=== PATIENT | male | born 1960 | race Caucasian/White ===

== ENCOUNTER 2018-06-25 03:13 | Inpatient (IN) | payer OTHER ==
[2018-06-25] MEDS: SOD CHLORIDE 0.9% 1,000 ML IV ×2 (04:34→16:30)
[2018-06-25 05:37] LABS: ADD MAN DIFF? NO
[2018-06-25 05:44] LABS: ABNORMAL IP MESSAGE 1; BASOPHILS % 0.5 % (0.0-2.0); EOSINOPHILS # 0.1 10^3/ul (0.0-0.5); EOSINOPHILS % 2.3 % (0.0-7.0); HEMATOCRIT 26.4 % (42.0-52.0); HEMOGLOBIN 9.1 g/dl (14.0-18.0); LYMPHOCYTES # 0.8 10^3/ul (0.8-2.9); LYMPHOCYTES % 13.9 % (15.0-51.0); MEAN CORPUSCULAR HEMOGLOBIN 33.5 pg (29.0-33.0); MEAN CORPUSCULAR HGB CONC 34.5 g/dl (32.0-37.0); MEAN CORPUSCULAR VOLUME 97.1 fl (82.0-101.0); MEAN PLATELET VOLUME 11.2 fl (7.4-10.4); MONOCYTE # 0.8 10^3/ul (0.3-0.9); NEUTROPHILS % 68.8 % (39.0-77.0); PLATELET COUNT 92 10^3/UL (140-415); POSITIVE DIFF @See below; RED BLOOD COUNT 2.72 10^6/ul (4.70-6.10); RED CELL DISTRIBUTION WIDTH 16.3 % (11.5-14.5)
[2018-06-25 05:44] LABS: WHITE BLOOD COUNT 5.8 10^3/ul (4.8-10.8)
[2018-06-25 06:12] LABS: ALANINE AMINOTRANSFERASE 47 IU/L (13-69); ALBUMIN 2.5 g/dl (3.3-4.9); ALBUMIN/GLOBULIN RATIO 0.67; ALKALINE PHOSPHATASE 120 IU/L (42-121); ANION GAP 7 (5-13); ASPARTATE AMINO TRANSFERASE 134 IU/L (15-46); BILIRUBIN,INDIRECT 1.1 mg/dl (0-1.1); BLOOD UREA NITROGEN 8 mg/dl (7-20); CALCIUM 7.5 mg/dl (8.4-10.2); CARBON DIOXIDE 27 mmol/L (21-31); CHLORIDE 99 mmol/L (97-110); CREATININE 0.49 mg/dl (0.61-1.24); Estimated GFR > 60 mL/min (>60); GLUCOSE 93 mg/dl (70-220); POTASSIUM 4.3 mmol/L (3.5-5.1); SODIUM 133 mmol/L (135-144); TOTAL PROTEIN 6.2 g/dl (6.1-8.1)
[2018-06-25] MEDS ORDERED: SOD CHLORIDE 0.9% 1,000 ML IV (07:24)
[2018-06-25] MEDS ORDERED: NACL 0.9% 3 ML SYG IV (07:30)
[2018-06-25] MEDS ORDERED: ACETAMINOPHEN 325 MG TAB PO (07:30)
[2018-06-25] MEDS ORDERED: VANCOMYCIN IV PER PHARMACY XX (07:30)
[2018-06-25] MEDS ORDERED: HEPARIN 5,000 UNIT/0.5 ML VIAL ×2 (09:52→20:00)
[2018-06-25] MEDS: METHADONE 10 MG TAB PO (09:58)
[2018-06-25] MEDS: HYDROCODONE/APAP (5/325) TAB PO ×3 (09:59→20:33)
[2018-06-25] MEDS: CEFEPIME 1GM/50 ML (PMX) 50 ML IVPB ×2 (09:59→20:17)
[2018-06-25] MEDS: HEPARIN 5,000 UNIT/1 ML VIAL SC ×2 (10:03→20:41)
[2018-06-25] MEDS: VANCOMYCIN 1.25 GM in SOD CHLORIDE 0.9% 250 ML IVPB ×2 (10:52→22:33)
[2018-06-25] MEDS: LACTOBACILLUS RHAMNOSUS CAP PO (20:17)
[2018-06-26] MEDS: SOD CHLORIDE 0.9% 1,000 ML IV ×3 (00:30→21:02)
[2018-06-26] MEDS: HYDROCODONE/APAP (5/325) TAB PO ×4 (02:57→23:19)
[2018-06-26 05:54] LABS: ADD MAN DIFF? NO; HAAIG REFLEX REFLEX FILED
[2018-06-26 05:59] LABS: BASOPHILS % 0.8 % (0.0-2.0); EOSINOPHILS # 0.2 10^3/ul (0.0-0.5); EOSINOPHILS % 3.4 % (0.0-7.0); HEMOGLOBIN 10.1 g/dl (14.0-18.0); LYMPHOCYTES % 21.5 % (15.0-51.0); MEAN CORPUSCULAR HEMOGLOBIN 32.9 pg (29.0-33.0); MEAN CORPUSCULAR HGB CONC 33.7 g/dl (32.0-37.0); MEAN CORPUSCULAR VOLUME 97.7 fl (82.0-101.0); MEAN PLATELET VOLUME 10.4 fl (7.4-10.4); MONOCYTE # 0.5 10^3/ul (0.3-0.9); MONOCYTES % 10.8 % (0.0-11.0); NEUTROPHILS % 63.3 % (39.0-77.0); PLATELET COUNT 108 10^3/UL (140-415); POSITIVE DIFF @See below; RED BLOOD COUNT 3.07 10^6/ul (4.70-6.10); RED CELL DISTRIBUTION WIDTH 16.7 % (11.5-14.5)
[2018-06-26 05:59] LABS: WHITE BLOOD COUNT 4.7 10^3/ul (4.8-10.8)
[2018-06-26 06:34] LABS: INR 1.46; PT RATIO 1.4
[2018-06-26 06:49] LABS: ALANINE AMINOTRANSFERASE 44 IU/L (13-69); ALBUMIN 2.3 g/dl (3.3-4.9); ALKALINE PHOSPHATASE 133 IU/L (42-121); ASPARTATE AMINO TRANSFERASE 134 IU/L (15-46); BILIRUBIN,INDIRECT 1.5 mg/dl (0-1.1); TOTAL PROTEIN 6.4 g/dl (6.1-8.1)
[2018-06-26 07:16] LABS: ALANINE AMINOTRANSFERASE 46 IU/L (13-69); ALBUMIN 2.3 g/dl (3.3-4.9); ALKALINE PHOSPHATASE 132 IU/L (42-121); ANION GAP 5 (5-13); ASPARTATE AMINO TRANSFERASE 127 IU/L (15-46); BILIRUBIN,INDIRECT 1.4 mg/dl (0-1.1); BLOOD UREA NITROGEN 10 mg/dl (7-20); CALCIUM 7.5 mg/dl (8.4-10.2); CARBON DIOXIDE 32 mmol/L (21-31); CHLORIDE 99 mmol/L (97-110); CREATININE 0.54 mg/dl (0.61-1.24); Estimated GFR > 60 mL/min (>60); GLUCOSE 75 mg/dl (70-220); POTASSIUM 4.8 mmol/L (3.5-5.1); SODIUM 136 mmol/L (135-144); TOTAL PROTEIN 6.1 g/dl (6.1-8.1)
[2018-06-26 07:24] LABS: PHOSPHORUS 3.3 mg/dl (2.5-4.9)
[2018-06-26 07:24] LABS: MAGNESIUM 1.7 mg/dl (1.7-2.5)
[2018-06-26 07:28] LABS: HEPATITIS B SURFACE ANTIGEN NEGATIVE (NEGATIVE)
[2018-06-26 07:46] LABS: HEPATITIS B CORE ANTIBODY REACTIVE (NEGATIVE); HEPATITIS C VIRAL ANTIBODY REACTIVE (NEGATIVE)
[2018-06-26 09:43] LABS: HEMOGLOBIN A1C 4.8 % (0-5.9)
[2018-06-26] MEDS ORDERED: HEPARIN 5,000 UNIT/0.5 ML VIAL ×2 (09:46→23:00)
[2018-06-26] MEDS: CEFEPIME 1GM/50 ML (PMX) 50 ML IVPB ×2 (09:59→21:02)
[2018-06-26] MEDS: CLOTRIMAZOLE 1% 30 GM CR TOP ×2 (10:00→23:18)
[2018-06-26] MEDS: LACTOBACILLUS RHAMNOSUS CAP PO ×2 (10:00→23:18)
[2018-06-26] MEDS: NEOMYC/POLYMYX/BACIT 30 GM OINT TOP ×2 (10:00→23:18)
[2018-06-26] MEDS: HEPARIN 5,000 UNIT/1 ML VIAL SC ×2 (10:08→23:27)
[2018-06-26] MEDS: VANCOMYCIN 1.25 GM in SOD CHLORIDE 0.9% 250 ML IVPB ×2 (11:49→23:17)
[2018-06-26] MEDS: METHADONE 10 MG TAB PO (12:49)
[2018-06-26 23:02] LABS: VANCOMYCIN,TROUGH 12.1 ug/ml (10.0-20.0)
[2018-06-27] MEDS: SOD CHLORIDE 0.9% 1,000 ML IV ×2 (06:30→09:19)
[2018-06-27] MEDS ORDERED: HEPARIN 5,000 UNIT/0.5 ML VIAL ×2 (08:52→19:33)
[2018-06-27] MEDS: LACTOBACILLUS RHAMNOSUS CAP PO ×2 (09:09→19:55)
[2018-06-27] MEDS: CEFEPIME 1GM/50 ML (PMX) 50 ML IVPB ×2 (09:09→19:55)
[2018-06-27] MEDS: METHADONE 10 MG TAB PO (09:11)
[2018-06-27] MEDS: HEPARIN 5,000 UNIT/1 ML VIAL SC ×2 (09:33→19:56)
[2018-06-27] MEDS: CLOTRIMAZOLE 1% 30 GM CR TOP ×2 (09:34→19:57)
[2018-06-27] MEDS: NEOMYC/POLYMYX/BACIT 30 GM OINT TOP ×2 (09:34→19:57)
[2018-06-27] MEDS: VANCOMYCIN 1.25 GM in SOD CHLORIDE 0.9% 250 ML IVPB ×2 (12:02→22:50)
[2018-06-27] MEDS: HYDROCODONE/APAP (5/325) TAB PO ×2 (12:03→21:20)
[2018-06-28 01:09] LABS: ADD UMIC YES; UR ASCORBIC ACID NEGATIVE (NEGATIVE); UR BACTERIA FEW /HPF (NONE SEEN); UR BILIRUBIN (Dip) NEGATIVE (NEGATIVE); UR BLOOD (Dip) 1+ mg/dL (NEGATIVE); UR CLARITY SLIGHTLY CLOUDY (CLEAR); UR COLOR AMBER (YELLOW); UR GLUCOSE (Dip) NEGATIVE (NEGATIVE); UR KETONES (Dip) NEGATIVE (NEGATIVE); UR LEUKOCYTE ESTERASE (Dip) NEGATIVE Leu/ul (NEGATIVE); UR MUCUS FEW /HPF (NONE SEEN); UR NITRITE (Dip) NEGATIVE (NEGATIVE); UR RBC 5 /HPF (0-5); UR SPECIFIC GRAVITY (Dip) 1.015 (1.003-1.030); UR TOTAL PROTEIN (Dip) NEGATIVE (NEGATIVE); UR UROBILINOGEN (Dip) NEGATIVE (NEGATIVE); UR WBC 1 /HPF (0-5)
[2018-06-28 05:25] LABS: ADD MAN DIFF? NO
[2018-06-28] MEDS: HYDROCODONE/APAP (5/325) TAB PO (05:50)
[2018-06-28 06:23] LABS: WHITE BLOOD COUNT 3.8 10^3/ul (4.8-10.8)
[2018-06-28 06:23] LABS: ABNORMAL IP MESSAGE 1; BASOPHILS % 0.5 % (0.0-2.0); EOSINOPHILS # 0.1 10^3/ul (0.0-0.5); EOSINOPHILS % 3.7 % (0.0-7.0); HEMATOCRIT 21.8 % (42.0-52.0); HEMOGLOBIN 7.4 g/dl (14.0-18.0); LYMPHOCYTES # 0.7 10^3/ul (0.8-2.9); LYMPHOCYTES % 17.8 % (15.0-51.0); MEAN CORPUSCULAR HEMOGLOBIN 34.3 pg (29.0-33.0); MEAN CORPUSCULAR HGB CONC 33.9 g/dl (32.0-37.0); MEAN CORPUSCULAR VOLUME 100.9 fl (82.0-101.0); MEAN PLATELET VOLUME 11.3 fl (7.4-10.4); MONOCYTE # 0.5 10^3/ul (0.3-0.9); MONOCYTES % 13.4 % (0.0-11.0); NEUTROPHIL # 2.4 10^3/ul (1.6-7.5); NEUTROPHILS % 64.1 % (39.0-77.0); NUCLEATED RED BLOOD CELLS% 0.5 /100WBC (0.0-0.0); PLATELET COUNT 94 10^3/UL (140-415); POSITIVE DIFF @See below; RED BLOOD COUNT 2.16 10^6/ul (4.70-6.10); RED CELL DISTRIBUTION WIDTH 17.2 % (11.5-14.5)
[2018-06-28 06:30] LABS: ALANINE AMINOTRANSFERASE 39 IU/L (13-69); ALBUMIN 1.3 g/dl (3.3-4.9); ALBUMIN/GLOBULIN RATIO 0.46; ALKALINE PHOSPHATASE 70 IU/L (42-121); ANION GAP 5 (5-13); ASPARTATE AMINO TRANSFERASE 91 IU/L (15-46); BILIRUBIN,INDIRECT 0.7 mg/dl (0-1.1); BILIRUBIN,TOTAL 0.7 mg/dl (0.2-1.3); BLOOD UREA NITROGEN 7 mg/dl (7-20); CARBON DIOXIDE 18 mmol/L (21-31); CHLORIDE 116 mmol/L (97-110); CREATININE 0.34 mg/dl (0.61-1.24); Estimated GFR > 60 mL/min (>60); GLUCOSE 54 mg/dl (70-220); POTASSIUM 3.3 mmol/L (3.5-5.1); SODIUM 139 mmol/L (135-144); TOTAL PROTEIN 4.1 g/dl (6.1-8.1)
[2018-06-28 06:38] LABS: CALCIUM 4.7 mg/dl (8.4-10.2)
[2018-06-28] MEDS: ONDANSETRON 4 MG INJ IV (07:49)
[2018-06-28] MEDS ORDERED: HEPARIN 5,000 UNIT/0.5 ML VIAL (09:15)
[2018-06-28] MEDS: METHADONE 10 MG TAB PO (09:54)
[2018-06-28] MEDS: CEFEPIME 1GM/50 ML (PMX) 50 ML IVPB ×2 (09:54→20:36)
[2018-06-28] MEDS: LACTOBACILLUS RHAMNOSUS CAP PO ×2 (09:55→20:36)
[2018-06-28] MEDS: TRIMETHOPRIM/SULFAMETHOX (DS) TAB PO ×2 (09:55→20:36)
[2018-06-28] MEDS: HEPARIN 5,000 UNIT/1 ML VIAL SC (10:04)
[2018-06-28] MEDS: CLOTRIMAZOLE 1% 30 GM CR TOP ×2 (10:07→20:36)
[2018-06-28] MEDS: NEOMYC/POLYMYX/BACIT 30 GM OINT TOP ×2 (10:08→20:36)
[2018-06-28] MEDS: VANCOMYCIN 1.25 GM in SOD CHLORIDE 0.9% 250 ML IVPB ×2 (12:30→20:41)
[2018-06-28 15:25] LABS: ADD MAN DIFF? NO
[2018-06-28 15:26] LABS: BASOPHIL # 0.1 10^3/ul (0.0-0.1); BASOPHILS % 1.2 % (0.0-2.0); EOSINOPHILS # 0.2 10^3/ul (0.0-0.5); EOSINOPHILS % 3.8 % (0.0-7.0); HEMATOCRIT 29.7 % (42.0-52.0); HEMOGLOBIN 10.1 g/dl (14.0-18.0); MEAN CORPUSCULAR HEMOGLOBIN 33.9 pg (29.0-33.0); MEAN CORPUSCULAR VOLUME 99.7 fl (82.0-101.0); MEAN PLATELET VOLUME 10.2 fl (7.4-10.4); MONOCYTE # 0.6 10^3/ul (0.3-0.9); MONOCYTES % 12.4 % (0.0-11.0); NEUTROPHIL # 3.2 10^3/ul (1.6-7.5); PLATELET COUNT 122 10^3/UL (140-415); RED BLOOD COUNT 2.98 10^6/ul (4.70-6.10); RED CELL DISTRIBUTION WIDTH 17.1 % (11.5-14.5)
[2018-06-28 15:45] LABS: ANION GAP 0 (5-13); BLOOD UREA NITROGEN 9 mg/dl (7-20); CALCIUM 7.2 mg/dl (8.4-10.2); CARBON DIOXIDE 27 mmol/L (21-31); CHLORIDE 106 mmol/L (97-110); CREATININE 0.51 mg/dl (0.61-1.24); Estimated GFR > 60 mL/min (>60); GLUCOSE 107 mg/dl (70-220); POTASSIUM 4.7 mmol/L (3.5-5.1); SODIUM 133 mmol/L (135-144)
[2018-06-28] MEDS: POTASSIUM CHLORIDE (SR) 20 MEQ TAB PO (17:27)
[2018-06-29] MEDS: HYDROCODONE/APAP (5/325) TAB PO ×2 (01:49→17:20)
[2018-06-29] MEDS: TRIMETHOPRIM/SULFAMETHOX (DS) TAB PO ×2 (09:04→21:09)
[2018-06-29] MEDS: LACTOBACILLUS RHAMNOSUS CAP PO ×2 (09:04→21:09)
[2018-06-29] MEDS: METHADONE 10 MG TAB PO (09:05)
[2018-06-29] MEDS: CLOTRIMAZOLE 1% 30 GM CR TOP ×2 (09:08→21:10)
[2018-06-29] MEDS: NEOMYC/POLYMYX/BACIT 30 GM OINT TOP ×2 (09:09→21:10)
[2018-06-29] MEDS: CEFEPIME 1GM/50 ML (PMX) 50 ML IVPB (10:28)
[2018-06-29] MEDS: VANCOMYCIN 1.25 GM in SOD CHLORIDE 0.9% 250 ML IVPB (11:31)
[2018-06-29 11:36] LABS: ADD MAN DIFF? NO; BASOPHIL # 0.1 10^3/ul (0.0-0.1); BASOPHILS % 0.9 % (0.0-2.0); EOSINOPHILS # 0.1 10^3/ul (0.0-0.5); EOSINOPHILS % 2.4 % (0.0-7.0); HEMATOCRIT 30.5 % (42.0-52.0); HEMOGLOBIN 10.1 g/dl (14.0-18.0); LYMPHOCYTES % 18.8 % (15.0-51.0); MEAN CORPUSCULAR HEMOGLOBIN 33.1 pg (29.0-33.0); MEAN CORPUSCULAR HGB CONC 33.1 g/dl (32.0-37.0); MEAN PLATELET VOLUME 10.4 fl (7.4-10.4); MONOCYTE # 0.8 10^3/ul (0.3-0.9); MONOCYTES % 13.8 % (0.0-11.0); NEUTROPHIL # 3.5 10^3/ul (1.6-7.5); NEUTROPHILS % 63.7 % (39.0-77.0); PLATELET COUNT 130 10^3/UL (140-415); RED BLOOD COUNT 3.05 10^6/ul (4.70-6.10); RED CELL DISTRIBUTION WIDTH 17.4 % (11.5-14.5)
[2018-06-29 11:36] LABS: WHITE BLOOD COUNT 5.5 10^3/ul (4.8-10.8)
[2018-06-29 11:54] LABS: ANION GAP 5 (5-13); BLOOD UREA NITROGEN 10 mg/dl (7-20); CALCIUM 7.5 mg/dl (8.4-10.2); CARBON DIOXIDE 26 mmol/L (21-31); CHLORIDE 104 mmol/L (97-110); CREATININE 0.61 mg/dl (0.61-1.24); Estimated GFR > 60 mL/min (>60); GLUCOSE 89 mg/dl (70-220); POTASSIUM 5.4 mmol/L (3.5-5.1); SODIUM 135 mmol/L (135-144)
[2018-06-29] MEDS: MAGNESIUM SULFATE 2 GM/50 ML 50 ML IVPB (17:11)
[2018-06-29] MEDS: FAMOTIDINE 20 MG TAB PO (21:09)
[2018-06-30 06:01] LABS: ADD MAN DIFF? NO
[2018-06-30 06:13] LABS: WHITE BLOOD COUNT 4.8 10^3/ul (4.8-10.8)
[2018-06-30 06:13] LABS: BASOPHIL # 0.1 10^3/ul (0.0-0.1); BASOPHILS % 1.3 % (0.0-2.0); EOSINOPHILS # 0.1 10^3/ul (0.0-0.5); EOSINOPHILS % 2.9 % (0.0-7.0); HEMOGLOBIN 9.8 g/dl (14.0-18.0); LYMPHOCYTES # 0.9 10^3/ul (0.8-2.9); LYMPHOCYTES % 18.7 % (15.0-51.0); MEAN CORPUSCULAR HEMOGLOBIN 33.4 pg (29.0-33.0); MEAN CORPUSCULAR HGB CONC 33.8 g/dl (32.0-37.0); MEAN PLATELET VOLUME 10.5 fl (7.4-10.4); MONOCYTE # 0.7 10^3/ul (0.3-0.9); MONOCYTES % 13.6 % (0.0-11.0); NEUTROPHILS % 63.1 % (39.0-77.0); PLATELET COUNT 112 10^3/UL (140-415); POSITIVE DIFF @See below; RED BLOOD COUNT 2.93 10^6/ul (4.70-6.10); RED CELL DISTRIBUTION WIDTH 17.4 % (11.5-14.5)
[2018-06-30 06:40] LABS: ALANINE AMINOTRANSFERASE 47 IU/L (13-69); ALBUMIN 2.4 g/dl (3.3-4.9); ALBUMIN/GLOBULIN RATIO 0.58; ALKALINE PHOSPHATASE 129 IU/L (42-121); ANION GAP 4 (5-13); ASPARTATE AMINO TRANSFERASE 144 IU/L (15-46); BLOOD UREA NITROGEN 12 mg/dl (7-20); CALCIUM 7.9 mg/dl (8.4-10.2); CARBON DIOXIDE 29 mmol/L (21-31); CHLORIDE 102 mmol/L (97-110); CREATININE 0.55 mg/dl (0.61-1.24); Estimated GFR > 60 mL/min (>60); GLUCOSE 98 mg/dl (70-220); MAGNESIUM 2.2 mg/dl (1.7-2.5); PHOSPHORUS 3.6 mg/dl (2.5-4.9); SODIUM 135 mmol/L (135-144); TOTAL PROTEIN 6.5 g/dl (6.1-8.1)
[2018-06-30 06:51] LABS: TROPONIN-I 0.021 ng/ml (0.000-0.120)
[2018-06-30 07:01] LABS: POTASSIUM 5.9 mmol/L (3.5-5.1)
[2018-06-30] MEDS: TRIMETHOPRIM/SULFAMETHOX (DS) TAB PO ×2 (08:36→20:27)
[2018-06-30] MEDS: LACTOBACILLUS RHAMNOSUS CAP PO ×2 (08:36→20:27)
[2018-06-30] MEDS: NEOMYC/POLYMYX/BACIT 30 GM OINT TOP ×2 (08:37→20:28)
[2018-06-30] MEDS: METHADONE 10 MG TAB PO (08:37)
[2018-06-30] MEDS: CLOTRIMAZOLE 1% 30 GM CR TOP ×2 (08:38→20:28)
[2018-06-30] MEDS: NA POLYST SULFON 15 GM/60 ML BTL PO (11:07)
[2018-06-30 11:56] LABS: TROPONIN-I 0.013 ng/ml (0.000-0.120)
[2018-06-30 11:59] LABS: POTASSIUM 6.4 mmol/L (3.5-5.1)
[2018-06-30] MEDS: METOPROLOL (XL) 25 MG TAB PO (12:47)
[2018-06-30] MEDS: HYDROCODONE/APAP (5/325) TAB PO ×2 (15:53→23:10)
[2018-06-30] MEDS: FAMOTIDINE 20 MG TAB PO (20:27)
[2018-07-01] MEDS: HYDROCODONE/APAP (5/325) TAB PO ×2 (05:02→10:58)
[2018-07-01 05:33] LABS: ADD MAN DIFF? NO
[2018-07-01 05:49] LABS: BASOPHIL # 0.1 10^3/ul (0.0-0.1); BASOPHILS % 1.1 % (0.0-2.0); EOSINOPHILS # 0.2 10^3/ul (0.0-0.5); HEMATOCRIT 28.6 % (42.0-52.0); LYMPHOCYTES # 1.3 10^3/ul (0.8-2.9); LYMPHOCYTES % 23.6 % (15.0-51.0); MEAN CORPUSCULAR HEMOGLOBIN 33.8 pg (29.0-33.0); MEAN CORPUSCULAR VOLUME 96.6 fl (82.0-101.0); MONOCYTE # 0.8 10^3/ul (0.3-0.9); MONOCYTES % 14.9 % (0.0-11.0); NEUTROPHILS % 55.8 % (39.0-77.0); PLATELET COUNT 126 10^3/UL (140-415); POSITIVE DIFF @See below; RED BLOOD COUNT 2.96 10^6/ul (4.70-6.10); RED CELL DISTRIBUTION WIDTH 17.5 % (11.5-14.5)
[2018-07-01 05:49] LABS: WHITE BLOOD COUNT 5.3 10^3/ul (4.8-10.8)
[2018-07-01 06:06] LABS: ALANINE AMINOTRANSFERASE 49 IU/L (13-69); ALBUMIN 2.4 g/dl (3.3-4.9); ALBUMIN/GLOBULIN RATIO 0.53; ALKALINE PHOSPHATASE 117 IU/L (42-121); ANION GAP 5 (5-13); ASPARTATE AMINO TRANSFERASE 151 IU/L (15-46); BILIRUBIN,INDIRECT 1.6 mg/dl (0-1.1); BILIRUBIN,TOTAL 1.6 mg/dl (0.2-1.3); BLOOD UREA NITROGEN 10 mg/dl (7-20); CALCIUM 7.7 mg/dl (8.4-10.2); CARBON DIOXIDE 30 mmol/L (21-31); CHLORIDE 100 mmol/L (97-110); CREATININE 0.62 mg/dl (0.61-1.24); Estimated GFR > 60 mL/min (>60); GLUCOSE 71 mg/dl (70-220); POTASSIUM 4.9 mmol/L (3.5-5.1); SODIUM 135 mmol/L (135-144); TOTAL PROTEIN 6.9 g/dl (6.1-8.1)
[2018-07-01] MEDS: TRIMETHOPRIM/SULFAMETHOX (DS) TAB PO (08:50)
[2018-07-01] MEDS: NA POLYST SULFON 15 GM/60 ML BTL PO (08:50)
[2018-07-01] MEDS: LACTOBACILLUS RHAMNOSUS CAP PO (08:50)
[2018-07-01] MEDS: METHADONE 10 MG TAB PO (08:51)
[2018-07-01] MEDS: METOPROLOL (XL) 25 MG TAB PO (08:52)
[2018-07-01] MEDS: CLOTRIMAZOLE 1% 30 GM CR TOP (09:18)
[2018-07-01] MEDS: NEOMYC/POLYMYX/BACIT 30 GM OINT TOP (09:18)
== END 2018-07-01 15:15 | disposition home or self-care (01) | DRG 571 ==
LOC: TEL 03:13 → 6WM 03:21
PROC: 0JBR0ZZ Excision of Left Foot Subcutaneous Tissue and Fascia, Open Approach (ICD-10-PCS; principal; 2018-06-25)
DX: L02.413 Cutaneous abscess of right upper limb (principal); F11.20 Opioid dependence, uncomplicated; L97.529 Non-pressure chronic ulcer of other part of left foot with unspecified severity; L84 Corns and callosities; B35.3 Tinea pedis; M12.572 Traumatic arthropathy, left ankle and foot; D64.9 Anemia, unspecified; V89.2XXS Person injured in unspecified motor-vehicle accident, traffic, sequela; Z72.0 Tobacco use; S92.512S Displaced fracture of proximal phalanx of left lesser toe(s), sequela; Z59.0 Homelessness; F99 Mental disorder, not otherwise specified; E11.621 Type 2 diabetes mellitus with foot ulcer; B18.2 Chronic viral hepatitis C
CPT/HCPCS: 73630-LT; 76775; 80048; 80053; 80076; 80202; 81001; 83036; 83735; 84100; 84132; 84443; 84484; 85025; 85610; 86704; 86709; 86803; 87081; 87340; 93306

== ENCOUNTER 2018-09-09 01:52 | Inpatient (IN) | payer OTHER ==
[2018-09-09] MEDS ORDERED: ACETAMINOPHEN 325 MG TAB PO (03:30)
[2018-09-09] MEDS ORDERED: hydrALAzine 20 MG INJ IV (03:30)
[2018-09-09] MEDS ORDERED: NACL 0.9% 3 ML SYG IV (03:30)
[2018-09-09] MEDS ORDERED: DOCUSATE SODIUM 100 MG CAP PO (03:30)
[2018-09-09] MEDS ORDERED: ALBUTEROL/IPRATROPIUM (NEB) 3 ML AMP HHN (03:30)
[2018-09-09] MEDS ORDERED: NITROGLYCERIN (SL) 0.4 MG TAB SL (03:30)
[2018-09-09] MEDS ORDERED: LORAZEPAM 2 MG INJ IV (03:30)
[2018-09-09] MEDS ORDERED: VANCOMYCIN IV PER PHARMACY XX (03:30)
[2018-09-09] MEDS ORDERED: MAGNESIUM HYDROXIDE 30ML CUP PO (03:30)
[2018-09-09] MEDS: SOD CHLORIDE 0.9% 1,000 ML IV ×3 (04:47→23:25)
[2018-09-09] MEDS: PIPER-TAZO 3.375 GM IV (PMX) 100 ML IVPB ×3 (05:16→17:50)
[2018-09-09] MEDS: PANTOPRAZOLE (EC) 40 MG TAB PO (05:16)
[2018-09-09] MEDS: VANCOMYCIN HCL 1.25 GM in SOD CHLORIDE 0.9% 250 ML IVPB ×2 (06:27→18:37)
[2018-09-09 07:16] LABS: INR 1.42; PROTIME 17.5 Sec (11.9-14.9); PT RATIO 1.4
[2018-09-09 07:26] LABS: FREE T4 (FREE THYROXINE) 1.42 ng/dl (0.64-1.79)
[2018-09-09] MEDS: HEPARIN 5,000 UNIT/1 ML VIAL SC ×2 (09:03→21:00)
[2018-09-09] MEDS ORDERED: METHADONE 10 MG TAB PO (13:00)
[2018-09-09] MEDS: METHADONE HCL 10 MG/ML (1ML) POSYG PO (14:36)
[2018-09-09] MEDS: METHADONE (1 MG/1 ML PO SYG) PO (15:22)
[2018-09-09] MEDS: HYDROCODONE/APAP (5/325) TAB PO (18:37)
[2018-09-09] MEDS: METOPROLOL (XL) 25 MG TAB PO (18:57)
[2018-09-09 19:12] LABS: C-REACTIVE PROTEIN 3.4 mg/dl (0.0-0.9)
[2018-09-09 20:02] LABS: ERYTHROCYTE SEDIMENTATION RATE 26 mm/Hr (0-20)
[2018-09-09] MEDS: FLUOCINONIDE 0.05% 15 GM CR TOP (22:40)
[2018-09-10] MEDS: PIPER-TAZO 3.375 GM IV (PMX) 100 ML IVPB ×5 (00:38→23:06)
[2018-09-10] MEDS: VANCOMYCIN HCL 1.25 GM in SOD CHLORIDE 0.9% 250 ML IVPB ×2 (06:15→18:44)
[2018-09-10] MEDS: PANTOPRAZOLE (EC) 40 MG TAB PO (06:15)
[2018-09-10] MEDS: METHADONE (1 MG/1 ML PO SYG) PO (08:45)
[2018-09-10] MEDS: FLUOCINONIDE 0.05% 15 GM CR TOP ×2 (08:45→21:31)
[2018-09-10] MEDS: METOPROLOL (XL) 25 MG TAB PO (08:46)
[2018-09-10] MEDS: HEPARIN 5,000 UNIT/1 ML VIAL SC (08:47)
[2018-09-10] MEDS: SOD CHLORIDE 0.9% 1,000 ML IV (08:47)
[2018-09-10 08:53] LABS: WHITE BLOOD COUNT 4.7 10^3/ul (4.8-10.8)
[2018-09-10 08:53] LABS: ADD MAN DIFF? NO; BASOPHILS % 0.9 % (0.0-2.0); EOSINOPHILS # 0.3 10^3/ul (0.0-0.5); EOSINOPHILS % 5.3 % (0.0-7.0); HEMATOCRIT 22.5 % (42.0-52.0); HEMOGLOBIN 7.5 g/dl (14.0-18.0); LYMPHOCYTES % 21.3 % (15.0-51.0); MEAN CORPUSCULAR HEMOGLOBIN 32.8 pg (29.0-33.0); MEAN CORPUSCULAR HGB CONC 33.3 g/dl (32.0-37.0); MEAN CORPUSCULAR VOLUME 98.3 fl (82.0-101.0); MEAN PLATELET VOLUME 10.7 fl (7.4-10.4); MONOCYTE # 0.6 10^3/ul (0.3-0.9); MONOCYTES % 12.3 % (0.0-11.0); NEUTROPHIL # 2.8 10^3/ul (1.6-7.5); NEUTROPHILS % 59.8 % (39.0-77.0); PLATELET COUNT 139 10^3/UL (140-415); RED BLOOD COUNT 2.29 10^6/ul (4.70-6.10); RED CELL DISTRIBUTION WIDTH 17.6 % (11.5-14.5)
[2018-09-10] MEDS: SODIUM HYPOCHLORITE (1/40) 1 APPLIC BTL IRR ×2 (09:00→13:53)
[2018-09-10 09:22] LABS: ALANINE AMINOTRANSFERASE 29 IU/L (13-69); ALBUMIN 2.1 g/dl (3.3-4.9); ALBUMIN/GLOBULIN RATIO 0.51; ALKALINE PHOSPHATASE 87 IU/L (42-121); ANION GAP -1 (5-13); ASPARTATE AMINO TRANSFERASE 68 IU/L (15-46); BILIRUBIN,INDIRECT 0.8 mg/dl (0-1.1); BILIRUBIN,TOTAL 0.8 mg/dl (0.2-1.3); BLOOD UREA NITROGEN 10 mg/dl (7-20); CALCIUM 7.1 mg/dl (8.4-10.2); CARBON DIOXIDE 31 mmol/L (21-31); CHLORIDE 106 mmol/L (97-110); CREATININE 0.63 mg/dl (0.61-1.24); Estimated GFR > 60 mL/min (>60); GLUCOSE 79 mg/dl (70-220); SODIUM 136 mmol/L (135-144); TOTAL PROTEIN 6.2 g/dl (6.1-8.1)
[2018-09-10 09:40] LABS: B-TYPE NATRIURETIC PEPTIDE 2690 PG/ML (0-125)
[2018-09-10 10:19] LABS: PHOSPHORUS 3.4 mg/dl (2.5-4.9)
[2018-09-10 10:19] LABS: CHOLESTEROL 56 mg/dl (100-200); MAGNESIUM 1.6 mg/dl (1.7-2.5); TRIGLYCERIDES 44 mg/dl (0-149)
[2018-09-10 10:33] LABS: HEMOGLOBIN A1C 5.1 % (0-5.9)
[2018-09-10] MEDS: FUROSEMIDE 20 MG INJ IV (11:38)
[2018-09-10 11:58] LABS: CHOL/HDL RATIO 3.5 RATIO; LDL CHOLESTEROL,CALCULATED 31 mg/dl
[2018-09-10] MEDS: MAGNESIUM SULFATE 2 GM/50 ML 50 ML IVPB (12:19)
[2018-09-10 12:28] LABS: HDL CHOLESTEROL 16 mg/dl (28-71)
[2018-09-10 12:47] LABS: AMPHETAMINE/METHAMPHETAMINE NEGATIVE (NEGATIVE); BARBITURATES NEGATIVE (NEGATIVE); BENZODIAZEPINES NEGATIVE (NEGATIVE); CANNABINOIDS NEGATIVE (NEGATIVE)
[2018-09-10 12:48] LABS: COCAINE NEGATIVE (NEGATIVE); OPIATES POSITIVE (NEGATIVE)
[2018-09-10 17:54] LABS: VANCOMYCIN,TROUGH 13.7 ug/ml (10.0-20.0)
[2018-09-10] MEDS: morphine SULFATE/PF (2 MG/2 ML) SYG IV ×2 (18:22→22:40)
[2018-09-10] MEDS: HYDROCODONE/APAP (5/325) TAB PO (20:11)
[2018-09-11] MEDS: morphine SULFATE/PF (2 MG/2 ML) SYG IV ×3 (03:14→20:13)
[2018-09-11] MEDS: PIPER-TAZO 3.375 GM IV (PMX) 100 ML IVPB ×2 (05:10→12:13)
[2018-09-11] MEDS: VANCOMYCIN HCL 1.25 GM in SOD CHLORIDE 0.9% 250 ML IVPB ×2 (05:44→17:39)
[2018-09-11] MEDS: PANTOPRAZOLE (EC) 40 MG TAB PO (05:47)
[2018-09-11 07:53] LABS: ADD MAN DIFF? NO
[2018-09-11 07:55] LABS: BASOPHIL # 0.1 10^3/ul (0.0-0.1); BASOPHILS % 0.9 % (0.0-2.0); EOSINOPHILS # 0.3 10^3/ul (0.0-0.5); EOSINOPHILS % 5.6 % (0.0-7.0); HEMATOCRIT 26.1 % (42.0-52.0); HEMOGLOBIN 8.6 g/dl (14.0-18.0); LYMPHOCYTES # 1.2 10^3/ul (0.8-2.9); LYMPHOCYTES % 20.9 % (15.0-51.0); MEAN CORPUSCULAR HEMOGLOBIN 33.1 pg (29.0-33.0); MEAN CORPUSCULAR VOLUME 100.4 fl (82.0-101.0); MEAN PLATELET VOLUME 10.6 fl (7.4-10.4); MONOCYTE # 0.7 10^3/ul (0.3-0.9); MONOCYTES % 11.8 % (0.0-11.0); NEUTROPHIL # 3.3 10^3/ul (1.6-7.5); NEUTROPHILS % 60.6 % (39.0-77.0); PLATELET COUNT 128 10^3/UL (140-415); RED CELL DISTRIBUTION WIDTH 17.6 % (11.5-14.5)
[2018-09-11 07:55] LABS: WHITE BLOOD COUNT 5.5 10^3/ul (4.8-10.8)
[2018-09-11] MEDS: SODIUM HYPOCHLORITE (1/40) 1 APPLIC BTL IRR (08:00)
[2018-09-11 08:18] LABS: ANION GAP 4 (5-13); BLOOD UREA NITROGEN 12 mg/dl (7-20); CALCIUM 7.6 mg/dl (8.4-10.2); CARBON DIOXIDE 30 mmol/L (21-31); CHLORIDE 102 mmol/L (97-110); CREATININE 0.62 mg/dl (0.61-1.24); Estimated GFR > 60 mL/min (>60); GLUCOSE 91 mg/dl (70-220); POTASSIUM 4.3 mmol/L (3.5-5.1); SODIUM 136 mmol/L (135-144)
[2018-09-11] MEDS: FLUOCINONIDE 0.05% 15 GM CR TOP ×2 (08:50→21:00)
[2018-09-11] MEDS: METOPROLOL (XL) 25 MG TAB PO (08:51)
[2018-09-11] MEDS: METHADONE (1 MG/1 ML PO SYG) PO (08:51)
[2018-09-11 13:13] LABS: OCCULT BLOOD STOOL NEGATIVE (NEGATIVE)
[2018-09-11] MEDS: CIPROFLOXACIN 500 MG TAB PO (17:39)
[2018-09-11] MEDS ORDERED: morphine LIQ (10 MG/5 ML) CUP PO (18:30)
[2018-09-11] MEDS: TRIMETHOPRIM/SULFAMETHOX (DS) TAB PO (20:13)
[2018-09-12 01:38] LABS: TROPONIN-I 0.031 ng/ml (0.000-0.120)
[2018-09-12] MEDS: morphine SULFATE/PF (2 MG/2 ML) SYG IV ×4 (01:48→22:39)
[2018-09-12] MEDS: PANTOPRAZOLE (EC) 40 MG TAB PO (05:24)
[2018-09-12] MEDS: CIPROFLOXACIN 500 MG TAB PO ×2 (05:24→17:11)
[2018-09-12] MEDS: VANCOMYCIN HCL 1.25 GM in SOD CHLORIDE 0.9% 250 ML IVPB (05:24)
[2018-09-12 06:43] LABS: ADD MAN DIFF? NO
[2018-09-12 06:50] LABS: WHITE BLOOD COUNT 6.8 10^3/ul (4.8-10.8)
[2018-09-12 06:50] LABS: BASOPHIL # 0.1 10^3/ul (0.0-0.1); BASOPHILS % 0.9 % (0.0-2.0); EOSINOPHILS # 0.3 10^3/ul (0.0-0.5); EOSINOPHILS % 3.8 % (0.0-7.0); HEMATOCRIT 26.4 % (42.0-52.0); HEMOGLOBIN 8.9 g/dl (14.0-18.0); LYMPHOCYTES # 1.5 10^3/ul (0.8-2.9); LYMPHOCYTES % 22.1 % (15.0-51.0); MEAN CORPUSCULAR HEMOGLOBIN 33.3 pg (29.0-33.0); MEAN CORPUSCULAR HGB CONC 33.7 g/dl (32.0-37.0); MEAN CORPUSCULAR VOLUME 98.9 fl (82.0-101.0); MEAN PLATELET VOLUME 10.8 fl (7.4-10.4); MONOCYTE # 0.7 10^3/ul (0.3-0.9); MONOCYTES % 10.9 % (0.0-11.0); NEUTROPHIL # 4.2 10^3/ul (1.6-7.5); NEUTROPHILS % 62.2 % (39.0-77.0); PLATELET COUNT 147 10^3/UL (140-415); RED BLOOD COUNT 2.67 10^6/ul (4.70-6.10); RED CELL DISTRIBUTION WIDTH 17.5 % (11.5-14.5)
[2018-09-12 07:08] LABS: MAGNESIUM 1.9 mg/dl (1.7-2.5)
[2018-09-12 07:08] LABS: PHOSPHORUS 3.9 mg/dl (2.5-4.9)
[2018-09-12 07:10] LABS: ANION GAP 5 (5-13); BLOOD UREA NITROGEN 14 mg/dl (7-20); CALCIUM 7.8 mg/dl (8.4-10.2); CARBON DIOXIDE 29 mmol/L (21-31); CHLORIDE 102 mmol/L (97-110); Estimated GFR > 60 mL/min (>60); GLUCOSE 129 mg/dl (70-220); POTASSIUM 4.7 mmol/L (3.5-5.1); SODIUM 136 mmol/L (135-144)
[2018-09-12 07:18] LABS: TROPONIN-I 0.035 ng/ml (0.000-0.120)
[2018-09-12] MEDS: METHADONE (1 MG/1 ML PO SYG) PO (08:41)
[2018-09-12] MEDS: TRIMETHOPRIM/SULFAMETHOX (DS) TAB PO ×2 (08:41→21:04)
[2018-09-12] MEDS: METOPROLOL (XL) 25 MG TAB PO (08:42)
[2018-09-12] MEDS: SODIUM HYPOCHLORITE (1/40) 1 APPLIC BTL IRR (08:42)
[2018-09-12] MEDS: FLUOCINONIDE 0.05% 15 GM CR TOP ×2 (08:42→21:00)
[2018-09-12 15:23] LABS: C-REACTIVE PROTEIN 2.6 mg/dl (0.0-0.9)
[2018-09-12 16:03] LABS: ERYTHROCYTE SEDIMENTATION RATE 60 mm/Hr (0-20)
[2018-09-12] MEDS: HEPARIN 5,000 UNIT/1 ML VIAL SC (22:47)
[2018-09-13] MEDS: morphine SULFATE/PF (2 MG/2 ML) SYG IV ×3 (02:27→11:28)
[2018-09-13] MEDS: HYDROCODONE/APAP (5/325) TAB PO ×4 (03:57→23:21)
[2018-09-13] MEDS: PANTOPRAZOLE (EC) 40 MG TAB PO (05:50)
[2018-09-13] MEDS: CIPROFLOXACIN 500 MG TAB PO ×2 (05:50→17:32)
[2018-09-13 07:03] LABS: ADD MAN DIFF? NO
[2018-09-13 07:12] LABS: WHITE BLOOD COUNT 6.1 10^3/ul (4.8-10.8)
[2018-09-13 07:12] LABS: BASOPHIL # 0.1 10^3/ul (0.0-0.1); BASOPHILS % 1.5 % (0.0-2.0); EOSINOPHILS # 0.4 10^3/ul (0.0-0.5); EOSINOPHILS % 5.9 % (0.0-7.0); HEMATOCRIT 26.7 % (42.0-52.0); HEMOGLOBIN 8.6 g/dl (14.0-18.0); LYMPHOCYTES # 1.3 10^3/ul (0.8-2.9); LYMPHOCYTES % 21.4 % (15.0-51.0); MEAN CORPUSCULAR HEMOGLOBIN 32.6 pg (29.0-33.0); MEAN CORPUSCULAR HGB CONC 32.2 g/dl (32.0-37.0); MEAN CORPUSCULAR VOLUME 101.1 fl (82.0-101.0); MEAN PLATELET VOLUME 10.9 fl (7.4-10.4); MONOCYTE # 0.7 10^3/ul (0.3-0.9); MONOCYTES % 11.9 % (0.0-11.0); NEUTROPHIL # 3.6 10^3/ul (1.6-7.5); PLATELET COUNT 153 10^3/UL (140-415); RED BLOOD COUNT 2.64 10^6/ul (4.70-6.10); RED CELL DISTRIBUTION WIDTH 17.2 % (11.5-14.5)
[2018-09-13 07:23] LABS: ANION GAP 5 (5-13); BLOOD UREA NITROGEN 15 mg/dl (7-20); CALCIUM 7.8 mg/dl (8.4-10.2); CARBON DIOXIDE 28 mmol/L (21-31); CHLORIDE 102 mmol/L (97-110); CREATININE 0.72 mg/dl (0.61-1.24); Estimated GFR > 60 mL/min (>60); GLUCOSE 105 mg/dl (70-220); POTASSIUM 4.9 mmol/L (3.5-5.1); SODIUM 135 mmol/L (135-144)
[2018-09-13 07:31] LABS: MAGNESIUM 1.9 mg/dl (1.7-2.5)
[2018-09-13 07:31] LABS: PHOSPHORUS 4.2 mg/dl (2.5-4.9)
[2018-09-13] MEDS: TRIMETHOPRIM/SULFAMETHOX (DS) TAB PO ×2 (08:54→20:27)
[2018-09-13] MEDS: METOPROLOL (XL) 25 MG TAB PO (08:54)
[2018-09-13] MEDS: FLUOCINONIDE 0.05% 15 GM CR TOP ×2 (08:54→20:32)
[2018-09-13] MEDS: SODIUM HYPOCHLORITE (1/40) 1 APPLIC BTL IRR (08:54)
[2018-09-13] MEDS: HEPARIN 5,000 UNIT/1 ML VIAL SC ×2 (08:54→20:32)
[2018-09-13] MEDS: METHADONE (1 MG/1 ML PO SYG) PO (09:42)
[2018-09-13] MEDS: morphine 2 MG INJ IV ×2 (16:09→20:18)
[2018-09-14] MEDS: morphine 2 MG INJ IV ×3 (00:14→23:05)
[2018-09-14] MEDS: CIPROFLOXACIN 500 MG TAB PO ×2 (06:07→17:56)
[2018-09-14] MEDS: PANTOPRAZOLE (EC) 40 MG TAB PO (06:08)
[2018-09-14 06:52] LABS: ADD MAN DIFF? NO
[2018-09-14 06:56] LABS: WHITE BLOOD COUNT 5.7 10^3/ul (4.8-10.8)
[2018-09-14 06:56] LABS: BASOPHIL # 0.1 10^3/ul (0.0-0.1); BASOPHILS % 1.2 % (0.0-2.0); EOSINOPHILS # 0.4 10^3/ul (0.0-0.5); EOSINOPHILS % 7.8 % (0.0-7.0); HEMATOCRIT 24.5 % (42.0-52.0); HEMOGLOBIN 8.1 g/dl (14.0-18.0); LYMPHOCYTES # 1.3 10^3/ul (0.8-2.9); LYMPHOCYTES % 22.7 % (15.0-51.0); MEAN CORPUSCULAR HEMOGLOBIN 32.8 pg (29.0-33.0); MEAN CORPUSCULAR HGB CONC 33.1 g/dl (32.0-37.0); MEAN CORPUSCULAR VOLUME 99.2 fl (82.0-101.0); MONOCYTE # 0.8 10^3/ul (0.3-0.9); MONOCYTES % 13.6 % (0.0-11.0); NEUTROPHIL # 3.1 10^3/ul (1.6-7.5); NEUTROPHILS % 54.3 % (39.0-77.0); PLATELET COUNT 131 10^3/UL (140-415); POSITIVE DIFF @See below; RED BLOOD COUNT 2.47 10^6/ul (4.70-6.10); RED CELL DISTRIBUTION WIDTH 16.9 % (11.5-14.5)
[2018-09-14 07:11] LABS: ANION GAP 6 (5-13); BLOOD UREA NITROGEN 15 mg/dl (7-20); CALCIUM 7.9 mg/dl (8.4-10.2); CARBON DIOXIDE 25 mmol/L (21-31); CHLORIDE 104 mmol/L (97-110); CREATININE 0.75 mg/dl (0.61-1.24); Estimated GFR > 60 mL/min (>60); GLUCOSE 70 mg/dl (70-220); POTASSIUM 5.6 mmol/L (3.5-5.1); SODIUM 135 mmol/L (135-144)
[2018-09-14 07:15] LABS: PHOSPHORUS 4.1 mg/dl (2.5-4.9)
[2018-09-14] MEDS: SODIUM POLYSTYRENE 15 GM KIT (POWDER + SORBITOL) PO (08:00)
[2018-09-14] MEDS: SODIUM HYPOCHLORITE (1/40) 1 APPLIC BTL IRR (09:04)
[2018-09-14] MEDS: TRIMETHOPRIM/SULFAMETHOX (DS) TAB PO ×2 (09:06→22:01)
[2018-09-14] MEDS: METOPROLOL (XL) 25 MG TAB PO (09:06)
[2018-09-14] MEDS: FLUOCINONIDE 0.05% 15 GM CR TOP ×2 (09:07→22:01)
[2018-09-14] MEDS: METHADONE 10 MG TAB PO (09:08)
[2018-09-14] MEDS: HEPARIN 5,000 UNIT/1 ML VIAL SC ×2 (09:15→22:15)
[2018-09-14] MEDS: HYDROCODONE/APAP (5/325) TAB PO ×3 (15:07→19:33)
[2018-09-14 15:30] LABS: POTASSIUM 4.9 mmol/L (3.5-5.1)
[2018-09-15] MEDS: HYDROCODONE/APAP (5/325) TAB PO ×5 (02:08→20:12)
[2018-09-15] MEDS: morphine 2 MG INJ IV ×2 (04:00→08:52)
[2018-09-15] MEDS: PANTOPRAZOLE (EC) 40 MG TAB PO (06:10)
[2018-09-15] MEDS: CIPROFLOXACIN 500 MG TAB PO ×2 (06:10→17:18)
[2018-09-15 06:22] LABS: ADD MAN DIFF? NO
[2018-09-15 06:47] LABS: MAGNESIUM 1.9 mg/dl (1.7-2.5)
[2018-09-15 06:47] LABS: PHOSPHORUS 4.1 mg/dl (2.5-4.9)
[2018-09-15 06:59] LABS: ANION GAP 5 (5-13); BLOOD UREA NITROGEN 14 mg/dl (7-20); CALCIUM 7.8 mg/dl (8.4-10.2); CARBON DIOXIDE 25 mmol/L (21-31); CHLORIDE 104 mmol/L (97-110); CREATININE 0.69 mg/dl (0.61-1.24); Estimated GFR > 60 mL/min (>60); GLUCOSE 73 mg/dl (70-220); POTASSIUM 5.1 mmol/L (3.5-5.1); SODIUM 134 mmol/L (135-144)
[2018-09-15 08:00] LABS: WHITE BLOOD COUNT 4.7 10^3/ul (4.8-10.8)
[2018-09-15 08:00] LABS: BASOPHIL # 0.1 10^3/ul (0.0-0.1); BASOPHILS % 1.7 % (0.0-2.0); EOSINOPHILS # 0.4 10^3/ul (0.0-0.5); EOSINOPHILS % 7.5 % (0.0-7.0); HEMATOCRIT 23.7 % (42.0-52.0); LYMPHOCYTES # 1.1 10^3/ul (0.8-2.9); LYMPHOCYTES % 24.3 % (15.0-51.0); MEAN CORPUSCULAR HEMOGLOBIN 32.5 pg (29.0-33.0); MEAN CORPUSCULAR HGB CONC 33.8 g/dl (32.0-37.0); MEAN CORPUSCULAR VOLUME 96.3 fl (82.0-101.0); MEAN PLATELET VOLUME 10.7 fl (7.4-10.4); MONOCYTE # 0.7 10^3/ul (0.3-0.9); MONOCYTES % 15.5 % (0.0-11.0); NEUTROPHIL # 2.4 10^3/ul (1.6-7.5); PLATELET COUNT 124 10^3/UL (140-415); RED BLOOD COUNT 2.46 10^6/ul (4.70-6.10); RED CELL DISTRIBUTION WIDTH 16.6 % (11.5-14.5)
[2018-09-15] MEDS: METHADONE (1 MG/1 ML PO SYG) PO (08:29)
[2018-09-15] MEDS: SODIUM HYPOCHLORITE (1/40) 1 APPLIC BTL IRR (08:29)
[2018-09-15] MEDS: METOPROLOL (XL) 25 MG TAB PO (08:30)
[2018-09-15] MEDS: FLUOCINONIDE 0.05% 15 GM CR TOP ×2 (08:31→20:16)
[2018-09-15] MEDS: TRIMETHOPRIM/SULFAMETHOX (DS) TAB PO ×2 (08:31→20:12)
[2018-09-15] MEDS: FUROSEMIDE 20 MG TAB PO (08:31)
[2018-09-15] MEDS: HEPARIN 5,000 UNIT/1 ML VIAL SC ×2 (08:32→20:16)
[2018-09-15] MEDS: traMADol 50 MG TAB PO (22:20)
[2018-09-16] MEDS: HYDROCODONE/APAP (5/325) TAB PO ×3 (01:00→12:19)
[2018-09-16] MEDS: CIPROFLOXACIN 500 MG TAB PO ×2 (05:39→18:01)
[2018-09-16] MEDS: PANTOPRAZOLE (EC) 40 MG TAB PO (05:39)
[2018-09-16 06:00] LABS: ADD MAN DIFF? NO
[2018-09-16 06:13] LABS: BASOPHIL # 0.1 10^3/ul (0.0-0.1); BASOPHILS % 1.5 % (0.0-2.0); EOSINOPHILS # 0.2 10^3/ul (0.0-0.5); EOSINOPHILS % 5.7 % (0.0-7.0); HEMATOCRIT 24.2 % (42.0-52.0); HEMOGLOBIN 7.8 g/dl (14.0-18.0); LYMPHOCYTES % 25.7 % (15.0-51.0); MEAN CORPUSCULAR HEMOGLOBIN 32.9 pg (29.0-33.0); MEAN CORPUSCULAR HGB CONC 32.2 g/dl (32.0-37.0); MEAN CORPUSCULAR VOLUME 102.1 fl (82.0-101.0); MEAN PLATELET VOLUME 11.4 fl (7.4-10.4); MONOCYTE # 0.6 10^3/ul (0.3-0.9); MONOCYTES % 14.1 % (0.0-11.0); NEUTROPHIL # 2.1 10^3/ul (1.6-7.5); NEUTROPHILS % 52.7 % (39.0-77.0); PLATELET COUNT 122 10^3/UL (140-415); POSITIVE DIFF @See below; RED BLOOD COUNT 2.37 10^6/ul (4.70-6.10); RED CELL DISTRIBUTION WIDTH 17.2 % (11.5-14.5)
[2018-09-16 06:13] LABS: WHITE BLOOD COUNT 3.9 10^3/ul (4.8-10.8)
[2018-09-16 06:42] LABS: MAGNESIUM 1.8 mg/dl (1.7-2.5)
[2018-09-16 06:42] LABS: PHOSPHORUS 4.2 mg/dl (2.5-4.9)
[2018-09-16 06:45] LABS: ANION GAP 1 (5-13); BLOOD UREA NITROGEN 13 mg/dl (7-20); CALCIUM 7.8 mg/dl (8.4-10.2); CARBON DIOXIDE 27 mmol/L (21-31); CHLORIDE 105 mmol/L (97-110); CREATININE 0.76 mg/dl (0.61-1.24); Estimated GFR > 60 mL/min (>60); GLUCOSE 97 mg/dl (70-220); POTASSIUM 5.8 mmol/L (3.5-5.1); SODIUM 133 mmol/L (135-144)
[2018-09-16] MEDS: TRIMETHOPRIM/SULFAMETHOX (DS) TAB PO ×2 (09:01→21:00)
[2018-09-16] MEDS: METOPROLOL (XL) 25 MG TAB PO (09:02)
[2018-09-16] MEDS: FUROSEMIDE 20 MG TAB PO (09:03)
[2018-09-16] MEDS: HEPARIN 5,000 UNIT/1 ML VIAL SC ×2 (09:09→21:00)
[2018-09-16] MEDS: METHADONE (1 MG/1 ML PO SYG) PO (09:50)
[2018-09-16] MEDS: FLUOCINONIDE 0.05% 15 GM CR TOP ×2 (12:22→21:00)
[2018-09-16] MEDS: SODIUM HYPOCHLORITE (1/40) 1 APPLIC BTL IRR (12:22)
[2018-09-16] MEDS ORDERED: SENNA TAB PO (16:00)
[2018-09-17] MEDS: HYDROCODONE/APAP (5/325) TAB PO ×3 (03:29→20:13)
[2018-09-17 06:52] LABS: ADD MAN DIFF? NO
[2018-09-17] MEDS: CIPROFLOXACIN 500 MG TAB PO ×2 (06:54→17:19)
[2018-09-17] MEDS: PANTOPRAZOLE (EC) 40 MG TAB PO (06:54)
[2018-09-17 06:55] LABS: BASOPHIL # 0.1 10^3/ul (0.0-0.1); BASOPHILS % 1.3 % (0.0-2.0); EOSINOPHILS # 0.4 10^3/ul (0.0-0.5); EOSINOPHILS % 7.7 % (0.0-7.0); HEMATOCRIT 22.1 % (42.0-52.0); HEMOGLOBIN 7.4 g/dl (14.0-18.0); LYMPHOCYTES % 22.6 % (15.0-51.0); MEAN CORPUSCULAR HGB CONC 33.5 g/dl (32.0-37.0); MEAN CORPUSCULAR VOLUME 95.7 fl (82.0-101.0); MEAN PLATELET VOLUME 11.3 fl (7.4-10.4); MONOCYTE # 0.7 10^3/ul (0.3-0.9); MONOCYTES % 16.2 % (0.0-11.0); NEUTROPHIL # 2.4 10^3/ul (1.6-7.5); PLATELET COUNT 128 10^3/UL (140-415); POSITIVE DIFF @See below; RED BLOOD COUNT 2.31 10^6/ul (4.70-6.10); RED CELL DISTRIBUTION WIDTH 16.2 % (11.5-14.5)
[2018-09-17 06:55] LABS: WHITE BLOOD COUNT 4.5 10^3/ul (4.8-10.8)
[2018-09-17 07:11] LABS: PHOSPHORUS 4.1 mg/dl (2.5-4.9)
[2018-09-17 07:11] LABS: MAGNESIUM 1.7 mg/dl (1.7-2.5)
[2018-09-17 07:15] LABS: ALANINE AMINOTRANSFERASE 29 IU/L (13-69); ALBUMIN 2.4 g/dl (3.3-4.9); ALBUMIN/GLOBULIN RATIO 0.51; ALKALINE PHOSPHATASE 83 IU/L (42-121); ANION GAP 1 (5-13); ASPARTATE AMINO TRANSFERASE 94 IU/L (15-46); BILIRUBIN,INDIRECT 0.7 mg/dl (0-1.1); BILIRUBIN,TOTAL 0.7 mg/dl (0.2-1.3); BLOOD UREA NITROGEN 14 mg/dl (7-20); CALCIUM 7.8 mg/dl (8.4-10.2); CARBON DIOXIDE 29 mmol/L (21-31); CHLORIDE 104 mmol/L (97-110); CREATININE 0.78 mg/dl (0.61-1.24); Estimated GFR > 60 mL/min (>60); GLUCOSE 66 mg/dl (70-220); SODIUM 134 mmol/L (135-144); TOTAL PROTEIN 7.1 g/dl (6.1-8.1)
[2018-09-17] MEDS: TRIMETHOPRIM/SULFAMETHOX (DS) TAB PO ×2 (08:43→21:41)
[2018-09-17] MEDS: METHADONE (1 MG/1 ML PO SYG) PO ×2 (08:43→10:04)
[2018-09-17] MEDS: FUROSEMIDE 20 MG TAB PO (08:43)
[2018-09-17] MEDS: HEPARIN 5,000 UNIT/1 ML VIAL SC (08:48)
[2018-09-17] MEDS: METOPROLOL (XL) 25 MG TAB PO (09:00)
[2018-09-17] MEDS: FLUOCINONIDE 0.05% 15 GM CR TOP ×2 (13:06→21:41)
[2018-09-17] MEDS: SODIUM HYPOCHLORITE (1/40) 1 APPLIC BTL IRR (13:06)
[2018-09-17] MEDS: BARIUM SULF 2% 450 ML BTL (BERRY SMOOTHIE) PO (17:40)
[2018-09-18] MEDS: HYDROCODONE/APAP (5/325) TAB PO ×5 (02:42→21:16)
[2018-09-18] MEDS: LACTOBACILLUS RHAMNOSUS CAP PO ×3 (02:42→21:32)
[2018-09-18 06:02] LABS: ADD MAN DIFF? NO
[2018-09-18] MEDS: CIPROFLOXACIN 500 MG TAB PO ×2 (06:04→17:34)
[2018-09-18] MEDS: PANTOPRAZOLE (EC) 40 MG TAB PO (06:04)
[2018-09-18 06:07] LABS: BASOPHIL # 0.1 10^3/ul (0.0-0.1); BASOPHILS % 1.2 % (0.0-2.0); EOSINOPHILS # 0.3 10^3/ul (0.0-0.5); EOSINOPHILS % 6.8 % (0.0-7.0); HEMATOCRIT 21.9 % (42.0-52.0); HEMOGLOBIN 7.4 g/dl (14.0-18.0); MEAN CORPUSCULAR HEMOGLOBIN 32.3 pg (29.0-33.0); MEAN CORPUSCULAR HGB CONC 33.8 g/dl (32.0-37.0); MEAN CORPUSCULAR VOLUME 95.6 fl (82.0-101.0); MEAN PLATELET VOLUME 11.1 fl (7.4-10.4); MONOCYTE # 0.6 10^3/ul (0.3-0.9); MONOCYTES % 13.6 % (0.0-11.0); NEUTROPHIL # 2.3 10^3/ul (1.6-7.5); NEUTROPHILS % 55.2 % (39.0-77.0); PLATELET COUNT 128 10^3/UL (140-415); RED BLOOD COUNT 2.29 10^6/ul (4.70-6.10); RED CELL DISTRIBUTION WIDTH 16.5 % (11.5-14.5)
[2018-09-18 06:07] LABS: WHITE BLOOD COUNT 4.1 10^3/ul (4.8-10.8)
[2018-09-18 06:46] LABS: IRON 45 ug/dl (35-150)
[2018-09-18 06:55] LABS: % IRON SATURATION 13 % SAT (22-52); TOTAL IRON BINDING CAPACITY 339 ug/dl (241-421)
[2018-09-18 07:01] LABS: FERRITIN 45.4 ng/ml (11.1-264.0); PHOSPHORUS 3.7 mg/dl (2.5-4.9)
[2018-09-18 07:01] LABS: MAGNESIUM 1.9 mg/dl (1.7-2.5)
[2018-09-18 07:08] LABS: ANION GAP 7 (5-13); BLOOD UREA NITROGEN 12 mg/dl (7-20); CALCIUM 7.7 mg/dl (8.4-10.2); CARBON DIOXIDE 26 mmol/L (21-31); CHLORIDE 101 mmol/L (97-110); CREATININE 0.73 mg/dl (0.61-1.24); Estimated GFR > 60 mL/min (>60); GLUCOSE 105 mg/dl (70-220); POTASSIUM 4.5 mmol/L (3.5-5.1); SODIUM 134 mmol/L (135-144)
[2018-09-18] MEDS: TRIMETHOPRIM/SULFAMETHOX (DS) TAB PO ×2 (08:47→21:15)
[2018-09-18] MEDS: METOPROLOL (XL) 25 MG TAB PO (08:48)
[2018-09-18] MEDS: ENOXAPARIN 30 MG/0.3 ML SYG SC (08:52)
[2018-09-18] MEDS: FLUOCINONIDE 0.05% 15 GM CR TOP ×2 (09:22→21:19)
[2018-09-18] MEDS: METHADONE (1 MG/1 ML PO SYG) PO (09:22)
[2018-09-18] MEDS: SODIUM HYPOCHLORITE (1/40) 1 APPLIC BTL IRR (09:22)
[2018-09-18] MEDS: traMADol 50 MG TAB PO (14:06)
[2018-09-19] MEDS: HYDROCODONE/APAP (5/325) TAB PO ×5 (01:25→20:16)
[2018-09-19] MEDS: PANTOPRAZOLE (EC) 40 MG TAB PO (05:38)
[2018-09-19] MEDS: CIPROFLOXACIN 500 MG TAB PO ×2 (05:38→17:36)
[2018-09-19] MEDS: METHADONE (1 MG/1 ML PO SYG) PO (08:38)
[2018-09-19] MEDS: TRIMETHOPRIM/SULFAMETHOX (DS) TAB PO ×2 (08:40→20:10)
[2018-09-19] MEDS: LACTOBACILLUS RHAMNOSUS CAP PO ×2 (08:40→20:10)
[2018-09-19] MEDS: FLUOCINONIDE 0.05% 15 GM CR TOP ×2 (08:42→20:16)
[2018-09-19] MEDS: FUROSEMIDE 20 MG INJ IV ×2 (08:42→20:11)
[2018-09-19] MEDS: METOPROLOL (XL) 25 MG TAB PO (08:42)
[2018-09-19] MEDS: SODIUM HYPOCHLORITE (1/40) 1 APPLIC BTL IRR (08:43)
[2018-09-19] MEDS: ENOXAPARIN 30 MG/0.3 ML SYG SC (08:44)
[2018-09-19] MEDS: ONDANSETRON 4 MG INJ IV (11:12)
[2018-09-19 16:17] LABS: ERYTHROCYTE SEDIMENTATION RATE 90 mm/Hr (0-20)
[2018-09-19 16:46] LABS: C-REACTIVE PROTEIN 2.8 mg/dl (0.0-0.9)
[2018-09-19] MEDS: FUROSEMIDE 40 MG INJ IV (17:36)
[2018-09-20] MEDS: HYDROCODONE/APAP (5/325) TAB PO ×4 (04:20→21:15)
[2018-09-20] MEDS: CIPROFLOXACIN 500 MG TAB PO ×2 (06:03→17:08)
[2018-09-20] MEDS: PANTOPRAZOLE (EC) 40 MG TAB PO (06:03)
[2018-09-20] MEDS: SODIUM HYPOCHLORITE (1/40) 1 APPLIC BTL IRR (08:36)
[2018-09-20] MEDS: LISINOPRIL 5 MG TAB PO (08:36)
[2018-09-20] MEDS: TRIMETHOPRIM/SULFAMETHOX (DS) TAB PO ×2 (08:37→21:15)
[2018-09-20] MEDS: LACTOBACILLUS RHAMNOSUS CAP PO ×2 (08:38→21:52)
[2018-09-20] MEDS: METOPROLOL (XL) 25 MG TAB PO (08:38)
[2018-09-20] MEDS: METHADONE (1 MG/1 ML PO SYG) PO (08:40)
[2018-09-20] MEDS: FUROSEMIDE 20 MG INJ IV ×2 (08:40→21:15)
[2018-09-20] MEDS ORDERED: ENOXAPARIN 30 MG/0.3 ML SYG SC (09:00)
[2018-09-20] MEDS: ENOXAPARIN 40 MG/0.4 ML SYG SC (10:23)
[2018-09-20] MEDS: FLUOCINONIDE 0.05% 15 GM CR TOP ×2 (11:47→21:19)
[2018-09-20] MEDS: traMADol 50 MG TAB PO (13:09)
[2018-09-21] MEDS: HYDROCODONE/APAP (5/325) TAB PO ×3 (01:16→18:51)
[2018-09-21] MEDS: CIPROFLOXACIN 500 MG TAB PO ×2 (05:32→17:22)
[2018-09-21] MEDS: PANTOPRAZOLE (EC) 40 MG TAB PO (05:32)
[2018-09-21] MEDS: METHADONE (1 MG/1 ML PO SYG) PO (08:58)
[2018-09-21] MEDS: METOPROLOL (XL) 25 MG TAB PO (09:00)
[2018-09-21] MEDS: LISINOPRIL 5 MG TAB PO (09:00)
[2018-09-21] MEDS: TRIMETHOPRIM/SULFAMETHOX (DS) TAB PO ×2 (09:00→20:53)
[2018-09-21] MEDS: FLUOCINONIDE 0.05% 15 GM CR TOP ×2 (09:01→20:54)
[2018-09-21] MEDS: LACTOBACILLUS RHAMNOSUS CAP PO ×2 (09:01→20:53)
[2018-09-21] MEDS: FUROSEMIDE 20 MG INJ IV ×2 (09:01→20:53)
[2018-09-21] MEDS: SODIUM HYPOCHLORITE (1/40) 1 APPLIC BTL IRR (09:02)
[2018-09-21] MEDS: ENOXAPARIN 40 MG/0.4 ML SYG SC (09:05)
[2018-09-21] MEDS: IVERMECTIN 3 MG TAB PO (17:23)
[2018-09-21] MEDS: PERMETHRIN 5% 60 GM CR TOP (20:53)
[2018-09-22] MEDS: CIPROFLOXACIN 500 MG TAB PO ×2 (05:42→17:13)
[2018-09-22] MEDS: PANTOPRAZOLE (EC) 40 MG TAB PO (05:42)
[2018-09-22 07:43] LABS: CREATININE 0.67 mg/dl (0.61-1.24)
[2018-09-22 07:43] LABS: BLOOD UREA NITROGEN 11 mg/dl (7-20)
[2018-09-22] MEDS: METHADONE (1 MG/1 ML PO SYG) PO (09:08)
[2018-09-22] MEDS: LACTOBACILLUS RHAMNOSUS CAP PO ×2 (09:08→20:43)
[2018-09-22] MEDS: FUROSEMIDE 20 MG INJ IV ×2 (09:09→20:43)
[2018-09-22] MEDS: METOPROLOL (XL) 25 MG TAB PO (09:09)
[2018-09-22] MEDS: TRIMETHOPRIM/SULFAMETHOX (DS) TAB PO ×2 (09:09→20:43)
[2018-09-22] MEDS: LISINOPRIL 5 MG TAB PO (09:09)
[2018-09-22] MEDS: SODIUM HYPOCHLORITE (1/40) 1 APPLIC BTL IRR (09:10)
[2018-09-22] MEDS: FLUOCINONIDE 0.05% 15 GM CR TOP ×2 (09:11→20:45)
[2018-09-22] MEDS: ENOXAPARIN 40 MG/0.4 ML SYG SC (09:28)
[2018-09-22] MEDS: HYDROCODONE/APAP (5/325) TAB PO ×3 (12:46→21:14)
[2018-09-23] MEDS: HYDROCODONE/APAP (5/325) TAB PO ×5 (01:58→20:42)
[2018-09-23 06:26] LABS: ADD MAN DIFF? NO
[2018-09-23 06:28] LABS: BASOPHIL # 0.1 10^3/ul (0.0-0.1); BASOPHILS % 1.6 % (0.0-2.0); EOSINOPHILS # 0.6 10^3/ul (0.0-0.5); EOSINOPHILS % 11.3 % (0.0-7.0); HEMATOCRIT 23.3 % (42.0-52.0); HEMOGLOBIN 7.9 g/dl (14.0-18.0); LYMPHOCYTES % 20.6 % (15.0-51.0); MEAN CORPUSCULAR HEMOGLOBIN 31.9 pg (29.0-33.0); MEAN CORPUSCULAR HGB CONC 33.9 g/dl (32.0-37.0); MEAN PLATELET VOLUME 11.3 fl (7.4-10.4); MONOCYTE # 0.7 10^3/ul (0.3-0.9); MONOCYTES % 13.5 % (0.0-11.0); NEUTROPHIL # 2.6 10^3/ul (1.6-7.5); NEUTROPHILS % 52.6 % (39.0-77.0); PLATELET COUNT 154 10^3/UL (140-415); RED BLOOD COUNT 2.48 10^6/ul (4.70-6.10); RED CELL DISTRIBUTION WIDTH 16.1 % (11.5-14.5)
[2018-09-23] MEDS: PANTOPRAZOLE (EC) 40 MG TAB PO (06:30)
[2018-09-23] MEDS: CIPROFLOXACIN 500 MG TAB PO ×2 (06:30→17:14)
[2018-09-23 06:50] LABS: ALANINE AMINOTRANSFERASE 30 IU/L (13-69); ALBUMIN 2.5 g/dl (3.3-4.9); ALBUMIN/GLOBULIN RATIO 0.53; ALKALINE PHOSPHATASE 99 IU/L (42-121); ANION GAP 2 (5-13); ASPARTATE AMINO TRANSFERASE 95 IU/L (15-46); BILIRUBIN,INDIRECT 0.5 mg/dl (0-1.1); BILIRUBIN,TOTAL 0.5 mg/dl (0.2-1.3); BLOOD UREA NITROGEN 11 mg/dl (7-20); CALCIUM 7.7 mg/dl (8.4-10.2); CARBON DIOXIDE 28 mmol/L (21-31); CHLORIDE 103 mmol/L (97-110); CREATININE 0.67 mg/dl (0.61-1.24); Estimated GFR > 60 mL/min (>60); GLUCOSE 86 mg/dl (70-220); SODIUM 133 mmol/L (135-144); TOTAL PROTEIN 7.2 g/dl (6.1-8.1)
[2018-09-23] MEDS: TRIMETHOPRIM/SULFAMETHOX (DS) TAB PO ×2 (08:07→20:42)
[2018-09-23] MEDS: LACTOBACILLUS RHAMNOSUS CAP PO ×2 (08:07→21:00)
[2018-09-23] MEDS: METHADONE (1 MG/1 ML PO SYG) PO (08:07)
[2018-09-23] MEDS: SODIUM HYPOCHLORITE (1/40) 1 APPLIC BTL IRR (08:08)
[2018-09-23] MEDS: METOPROLOL (XL) 25 MG TAB PO (08:08)
[2018-09-23] MEDS: LISINOPRIL 5 MG TAB PO (08:08)
[2018-09-23] MEDS: FUROSEMIDE 20 MG INJ IV ×2 (08:10→20:42)
[2018-09-23] MEDS: FLUOCINONIDE 0.05% 15 GM CR TOP ×2 (08:10→21:00)
[2018-09-23] MEDS: ENOXAPARIN 40 MG/0.4 ML SYG SC (08:12)
[2018-09-24] MEDS: HYDROCODONE/APAP (5/325) TAB PO ×3 (01:37→13:20)
[2018-09-24] MEDS ORDERED: FUROSEMIDE 20 MG TAB PO (06:00)
[2018-09-24] MEDS: PANTOPRAZOLE (EC) 40 MG TAB PO (06:11)
[2018-09-24] MEDS: CIPROFLOXACIN 500 MG TAB PO (06:11)
[2018-09-24 07:11] LABS: ADD MAN DIFF? NO
[2018-09-24 07:19] LABS: WHITE BLOOD COUNT 5.8 10^3/ul (4.8-10.8)
[2018-09-24 07:19] LABS: BASOPHIL # 0.1 10^3/ul (0.0-0.1); BASOPHILS % 1.4 % (0.0-2.0); EOSINOPHILS # 0.6 10^3/ul (0.0-0.5); EOSINOPHILS % 10.1 % (0.0-7.0); HEMATOCRIT 25.5 % (42.0-52.0); HEMOGLOBIN 8.5 g/dl (14.0-18.0); LYMPHOCYTES # 1.6 10^3/ul (0.8-2.9); LYMPHOCYTES % 27.4 % (15.0-51.0); MEAN CORPUSCULAR HEMOGLOBIN 31.7 pg (29.0-33.0); MEAN CORPUSCULAR HGB CONC 33.3 g/dl (32.0-37.0); MEAN CORPUSCULAR VOLUME 95.1 fl (82.0-101.0); MEAN PLATELET VOLUME 11.1 fl (7.4-10.4); MONOCYTE # 0.6 10^3/ul (0.3-0.9); MONOCYTES % 10.6 % (0.0-11.0); NEUTROPHIL # 2.9 10^3/ul (1.6-7.5); NEUTROPHILS % 50.2 % (39.0-77.0); PLATELET COUNT 166 10^3/UL (140-415); RED BLOOD COUNT 2.68 10^6/ul (4.70-6.10); RED CELL DISTRIBUTION WIDTH 16.3 % (11.5-14.5)
[2018-09-24 07:47] LABS: PHOSPHORUS 3.7 mg/dl (2.5-4.9)
[2018-09-24 07:47] LABS: MAGNESIUM 1.9 mg/dl (1.7-2.5)
[2018-09-24 07:55] LABS: ANION GAP 10 (5-13); BLOOD UREA NITROGEN 11 mg/dl (7-20); CALCIUM 7.8 mg/dl (8.4-10.2); CARBON DIOXIDE 26 mmol/L (21-31); CHLORIDE 99 mmol/L (97-110); CREATININE 0.69 mg/dl (0.61-1.24); Estimated GFR > 60 mL/min (>60); GLUCOSE 72 mg/dl (70-220); POTASSIUM 4.9 mmol/L (3.5-5.1); SODIUM 135 mmol/L (135-144)
[2018-09-24] MEDS: LACTOBACILLUS RHAMNOSUS CAP PO (08:39)
[2018-09-24] MEDS: LISINOPRIL 5 MG TAB PO (08:40)
[2018-09-24] MEDS: FUROSEMIDE 20 MG TAB PO (08:40)
[2018-09-24] MEDS: TRIMETHOPRIM/SULFAMETHOX (DS) TAB PO (08:40)
[2018-09-24] MEDS: ENOXAPARIN 40 MG/0.4 ML SYG SC (08:41)
[2018-09-24] MEDS: FLUOCINONIDE 0.05% 15 GM CR TOP (09:00)
[2018-09-24] MEDS: METOPROLOL (XL) 25 MG TAB PO (09:00)
[2018-09-24] MEDS: METHADONE (1 MG/1 ML PO SYG) PO (09:16)
[2018-09-24] MEDS: SODIUM HYPOCHLORITE (1/40) 1 APPLIC BTL IRR (12:00)
== END 2018-09-24 17:21 | disposition home health service (06) | DRG 570 ==
LOC: TEL 09-15 16:12 → 5EC 09-18 06:49 → TEL 01:52
PROVIDERS: Hospitalist
PROC: 0JBR0ZZ Excision of Left Foot Subcutaneous Tissue and Fascia, Open Approach (ICD-10-PCS; principal; 2018-09-09)
PROC: 09CN7ZZ Extirpation of Matter from Nasopharynx, Via Natural or Artificial Opening (ICD-10-PCS; 2018-09-11)
DX: L98.499 Non-pressure chronic ulcer of skin of other sites with unspecified severity (principal); I50.23 Acute on chronic systolic (congestive) heart failure; L03.116 Cellulitis of left lower limb; I47.2 Ventricular tachycardia; M86.8X7 Other osteomyelitis, ankle and foot; D68.9 Coagulation defect, unspecified; I42.9 Cardiomyopathy, unspecified; K74.60 Unspecified cirrhosis of liver; I49.3 Ventricular premature depolarization; F11.10 Opioid abuse, uncomplicated; F20.9 Schizophrenia, unspecified; D64.9 Anemia, unspecified; F17.200 Nicotine dependence, unspecified, uncomplicated; I73.89 Other specified peripheral vascular diseases; T17.1XXA Foreign body in nostril, initial encounter; X58.XXXA Exposure to other specified factors, initial encounter; Z86.19 Personal history of other infectious and parasitic diseases; D69.6 Thrombocytopenia, unspecified; E87.5 Hyperkalemia; I11.0 Hypertensive heart disease with heart failure
CPT/HCPCS: 71045; 73590; 73610; 73630; 73630-LT; 73718; 74176; 76700; 80048; 80053; 80061; 80202; 80307; 82270; 82306; 82565; 82652; 82728; 83036; 83540; 83735; 83880; 84100; 84132; 84439; 84443; 84484; 84520; 85025; 85610; 85651; 85730; 86140; 87070; 87081; 93005; 93306; 93922; 93971; 97110; 97116; 97161; 97530